=== PATIENT | female | born 1990 | race Caucasian/White ===

== ENCOUNTER 2017-05-31 19:27 | Emergency (ER) | payer OTHER ==
[2017-05-31] MEDS ORDERED: LIDOCAINE 1% INJ-PF (10 MG/ML) 30 ML SDV INJ ONE (20:00)
[2017-05-31] MEDS ORDERED: LORAZEPAM 1 MG TABLET PO ONE (20:01)
--- NOTE | 2017-05-31 20:10 | ER Document Report ---
ED Wound - General Chief Complaint: Laceration L ring finger Stated Complaint: LEFT HAND LACERATION Time Seen by Provider: 05/31/17 19:52 Notes: Patient is a 27-year-old female who comes emergency department for chief complaint of laceration to her left fourth finger, laceration is over the site of the finger near the fingernail but not including the fingernail. She was cutting cucumbers when this happened. She states she was on the job. She is up -to-date on her tetanus within 5 years. She is not a diabetic. TRAVEL OUTSIDE OF THE U.S. IN LAST 30 DAYS: No - Related Data Allergies/Adverse Reactions: codeine Allergy (Verified 07/28/16 11:11) pseudoephedrine [From Sudafed] Allergy (Verified 07/28/16 11:11) Past Medical History - General Information source: Patient - Social History Smoking Status: Never Smoker Frequency of alcohol use: None Drug Abuse: None Lives with: Family Family History: Reviewed & Not Pertinent - Medical History Medical History: Negative Renal/ Medical History: Denies: Hx Peritoneal Dialysis Surgical Hx: Negative - Immunizations Immunizations up to date: Yes Hx Diphtheria, Pertussis, Tetanus Vaccination: Yes Review of Systems - Review of Systems Constitutional: No symptoms reported EENT: No symptoms reported Cardiovascular: No symptoms reported Respiratory: No symptoms reported Gastrointestinal: No symptoms reported Genitourinary: No symptoms reported Female Genitourinary: No symptoms reported Musculoskeletal: See HPI Skin: See HPI Hematologic/Lymphatic: No symptoms reported Neurological/Psychological: No symptoms reported Physical Exam - Vital signs Vitals: Temp Pulse Resp BP Pulse Ox 98.7 F 79 18 122/71 97 05/31/17 19:32 05/31/17 19:32 05/31/17 19:32 05/31/17 19:32 05/31/17 19:32 Interpretation: Normal - General General appearance: Appears well, Alert, Anxious In distress: None - HEENT Head: Normocephalic, Atraumatic Eyes: Normal Conjunctiva: Normal Extraocular movements intact: Yes Eyelashes: Normal Pupils: PERRL Mouth/Lips: Normal Mucous membranes: Normal Pharynx: Normal Neck: Normal - Respiratory Respiratory status: No respiratory distress Chest status: Nontender Breath sounds: Normal. No: Decreased air movement, Wheezing Chest palpation: Normal - Cardiovascular Rhythm: Regular. No: Tachycardia Heart sounds: Normal auscultation, S1 appreciated, S2 appreciated Murmur: No - Abdominal Inspection: Normal Distension: No distension Bowel sounds: Normal Tenderness: Nontender Organomegaly: No organomegaly - Back Back: Normal, Nontender. No: Tender, CVA tenderness - Extremities General upper extremity: Other - There is a 1 cm irregular laceration over the medial side of the left fourth digit just adjacent to the fingernail. Normal capillary refill and sensation, normal range of motion of the entire finger; normal hand, wrist, and arm exam otherwise. General lower extremity: Normal inspection, Nontender, Normal color, Normal ROM , Normal temperature, Normal weight bearing. No: Rasheeda's sign - Neurological Neuro grossly intact: Yes Cognition: Normal Orientation: AAOx4 [place] Coma Scale Eye Opening: Spontaneous [place] Coma Scale Verbal: Oriented [place] Coma Scale Motor: Obeys Commands [place] Coma Scale Total: 15 Speech: Normal Motor strength normal: LUE, RUE, LLE, RLE Sensory: Normal - Psychological Associated symptoms: Normal affect, Normal mood, Anxious - Skin Skin Temperature: Warm Skin Moisture: Dry Skin Color: Normal Course - Re-evaluation Re-evalutation: Patient started hyperventilating when we even discussed the suture repair. After discussion agreed to give Ativan before procedure. Wound cleaned and repaired, discussed wound care, follow-up, return precautions. Patient states understanding and agreement. - Vital Signs Vital signs: Temp Pulse Resp BP Pulse Ox 98 F 70 18 135/50 H 100 05/31/17 21:15 05/31/17 21:15 05/31/17 21:15 05/31/17 21:15 05/31/17 21:15 Procedures - Laceration/Wound Repair Left ring finger Wound length (cm): 1 Wound's Depth, Shape: Irregular Volume Anesthetic (mLs): 3 - Digital block on only the medial side Wound explored: Clean, No foreign body removed Irrigated w/ Saline (mLs): 40 Wound Repaired With: Sutures Suture Size/Type: 5:0, Nylon Number of Sutures: 3 Post-procedure wound care: Sterile dressing applied Post-procedure NV exam normal: Yes Complications: No Discharge - Discharge Clinical Impression: Finger laceration Qualifiers: Encounter type: initial encounter Finger: ring finger Damage to nail status: without damage Foreign body presence: without foreign body Laterality: left Qualified Code(s): S61.215A - Laceration without foreign body of left ring finger without damage to nail, initial encounter Condition: Stable Disposition: HOME, SELF-CARE Additional Instructions: The sutures need to come out in about 7 days at a medical facility. Keep clean, clean gently with soap and water, avoid soaking, dab dry. You can apply dressing with thin film of antibiotic to the area. Expect some oozing blood first couple of days, apply dressing and use care. Afterwards use standard contact precautions. Return to emergency department immediately for any concerning symptoms including discolored discharge, redness, swelling, fever, or any other concerning symptoms. Forms: Return to Work
[2017-05-31 21:16] VITALS: BP 135/50
== END 2017-05-31 21:15 | disposition home or self-care (01) ==
LOC: ER 19:27
PROC: 0HQGXZZ Repair Left Hand Skin, External Approach (ICD-10-PCS; principal; 2017-05-31)
DX: S61.215A Laceration without foreign body of left ring finger without damage to nail, initial encounter (principal); W26.0XXA Contact with knife, initial encounter; Y93.G1 Activity, food preparation and clean up; Y99.0 Civilian activity done for income or pay; Z88.6 Allergy status to analgesic agent
CPT/HCPCS: 99282; 12001; J3490

== ENCOUNTER 2017-06-27 15:16 | Emergency (ER) | payer SELFPAY ==
[2017-06-27 16:02] VITALS: BP 139/80
--- NOTE | 2017-06-27 16:40 | ER Document Report ---
ED Psych Disorder / Suicide - General TRAVEL OUTSIDE OF THE U.S. IN LAST 30 DAYS: No - HPI Onset: Just prior to arrival Onset was: Sudden Suicide Risk Factors: Bipolar, Depressed, Lack of social support - in [place] Normal mood: No Associated symptoms: Anxious, Depressed, Tearful Similar symptoms previously: Yes - long history, no outpatient treatmet recently Recently seen / treated by doctor: No - General Chief Complaint: Psych Problem Stated Complaint: SUICIDAL IDEATION - HPI Notes: Patient is 27 year old female who presents to the ER via [facility] with [facility]. Patient reports she is a burden to everyone and she is "tired of being the only one who gives a sh about her." Patient states she is from [place], and moved here to be with her girlfriend. She states she and her girlfriend argued because she did not kiss her girlfriend before bed last night. Patient states their argument continued this morning, which he when she started to have thoughts of killing herself. Patient states she had not committed a method of suicide and states she considered a gun, although adamantly admits she does not have access to a weapon, or Tylenol which she states she has at home. Patient states she called her girlfriend at work this morning to tell her the police were there because she was suicidal, a call she states was met with a cold/ uncaring response. Note, patient refuses to provide her girlfriend's contact information to gather collateral. Patient states she does not want to by suicide. She states life was once "beautiful" and she wants to feel that way again. Patient states she was previously in therapy and receiving medication management; however, when she moved to [place] she discontinued and did not schedule herself anywhere. Patient states she has numerous stressors, to include financial stemming from a 10 day hospital stay in [place] for a gastro related issue. She states she owes over $30,000 in medical bills. Patient states she has no other supports in this area. She states she cannot afford a motel room. Patient states her parents are driving from [place] [employer] to get her in the morning to bring her back to [place]. Patient states she does not want to go home, despite being concerned about her dog and other belongings. Patient denies wanting to by suicide. Patient denies prior attempts. She does report a prior history of inpatient psychiatric treatment (a 1x 72 hour hold in [place]). [facility] ([facility]) states she responded to the call this morning due to the patient expressing SI. [facility] states she has worked out a safety plan, to include the patient's parents driving here to bring her back to [place] tomorrow. She states she has no other safe place to stay, and [facility] did not feel it was safe to leave the patient in her home environment where there was Tylenol and her stressors (girlfriend). [facility] reports patient did not have the financial means to pay for a motel room. Patient is A&O. Mood is labile, irritable with tearful affect. Patient denies wanting to by suicide. She does acknowledge the made statements regarding suicide earlier in the day. Patient denies homicidal ideations, intent, plan, or means. Patient denies A/V H; delusions not noted. Thought processes were perseverative on her girlfriend, and their argument. Conversational speech was labile for rate, tone, and prosody. Intellectual abilties were estimated within average range. Attention and focus were poor (looked down at phone/texted throughout conversation). Insight, judgment, and impulse control were poor. Unspecified Bipolar Disorder, per history Patient is psychiatrically cleared for discharge. Patient is presenting via mobile crisis due not "[facility] Patient acknowledges she made SI comments earlier in the day, and further acknowledges that she considered methods of suicide; however, states she does not want to by suicide. Patient reports she wants to feel better and get back to a "beautiful life." Patient does not meet criteria for IVC under the [id number] as she denies SI/HI. Patient is attempting to meet her basic needs by misusing the ER and Mental Health systems. She has a home, where she states the lease is in her home and she can return to; however, declines to at this time. Patient provided resources to assist her in following up, to include the homeless fpc. I consulted with Dr. Diaz in regards to the care and management of this patient. (MITZI HENSON) - Related Data Allergies/Adverse Reactions: codeine Allergy (Verified 07/28/16 11:11) pseudoephedrine [From Sudafed] Allergy (Verified 07/28/16 11:11) Past Medical History - General Information source: Patient, [facility] Office - [facility] - Social History Smoking Status: Unknown if Ever Smoked Family History: Reviewed & Not Pertinent Patient has suicidal ideation: No - pt verbally denies wanting to by suicide Patient has homicidal ideation: No Renal/ Medical History: Denies: Hx Peritoneal Dialysis - Immunizations Immunizations up to date: Yes Hx Diphtheria, Pertussis, Tetanus Vaccination: Yes - Vital signs Vitals: Temp Pulse Resp BP Pulse Ox 98.2 F 67 18 139/80 H 96 06/27/17 15:41 06/27/17 15:41 06/27/17 15:41 06/27/17 15:41 06/27/17 15:41 - Vital Signs Vital signs: Temp Pulse Resp BP Pulse Ox 98.2 F 67 18 139/80 H 96 06/27/17 15:41 06/27/17 15:41 06/27/17 15:41 06/27/17 15:41 06/27/17 15:41 Discharge - Discharge Clinical Impression: Bipolar disorder Qualifiers: Active/Remission status: currently active Current bipolar episode type: depressed Current episode severity: unspecified Qualified Code(s): F31.30 - Bipolar disorder, current episode depressed, mild or moderate severity, unspecified Condition: Stable Disposition: HOME, SELF-CARE Additional Instructions: Bipolar Disorder Bipolar disorder is also called manic-depressive disorder. Depression alternates with brain hyperactivity called eitan. Each phase lasts from several days to a few weeks. We don't know exactly what causes bipolar disorder , but it's treatable. During the "manic phase," you may feel elated and energetic. You may have racing thoughts, rapid speech, increased activity, and grandiose ideas. During this time, you may not realize how poor your judgement is. Inappropriate spending, drug abuse, excessive alcohol use, marriage problems, and irresponsible sexual behavior are common during the manic phase. During the "depressive phase," you might feel depressed, guilty, worthless , fatigued, and unable to concentrate. You might have thoughts of suicide. Good treatments are available for bipolar disorder. [place] is a classic drug for bipolar disorder, and is still often useful. If the manic phase is very mild, an antidepressant alone can be prescribed. If the manic phase is very severe, an antipsychotic medicine (such as Haldol) may be needed. The treatment must be matched to your symptoms, so it's important to work closely with your psychiatric care provider. Contact your physician, the hospital emergency center, crisis line, or your counsellor if you are losing control or having self-destructive thoughts. Please follow your safety plan as designated by [facility] with [facility]. You have indicated you have a home to return to, but are choosing not to. You have been provided resources to assist you in pursuing a bed at the homeless fpc if you so desire. You have denied multiple times wanting to by suicide. Referrals: [facility] Team [Provider Group] - Follow up as needed
--- NOTE | 2017-06-27 17:14 | ER Document Report ---
ED Psych Disorder / Suicide - General Mode of Arrival: Ambulatory Information source: Patient TRAVEL OUTSIDE OF THE U.S. IN LAST 30 DAYS: No - HPI Patient complains to provider of: Other Onset: Just prior to arrival Quality of pain: No pain Severity: None - General Chief Complaint: psych eval Stated Complaint: SUICIDAL IDEATION Time Seen by Provider: 06/27/17 17:02 Notes: This 27-year-old female patient wants to stay in the emergency room because she has nowhere to stay tonight. She has had a deteriorating relationship with her girlfriend for some time, and got acutely worse this morning by history. She states the home where she lives has a lease and her name, and everyone there is now upset because if she leaves then they will be forced out of the residence. She states she does not have money for hotel room. She was seen by Loretta earlier, she made several derogatory comments about Loretta because she essentially told her that she cannot stay in the emergency room and that she could go to a hotel or to the homeless snf. The patient states that her parents are on the way here from [facility], that it is a [address] She cannot or will not tell me if they will be here [facility] or sometime tomorrow. She cannot tell me if they were leaving [facility] or leaving tomorrow to come to [place]. From the time they first were contacted they could have been here probably by midnight. She claims she was last on medication for her anxiety and depression problems 5 years ago. She does smoke cigarettes, does not drink alcohol, does smoke marijuana. 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 She does not want to kill herself. She called [facility] mobile crisis earlier and indicated that she had suicidal thoughts. She does not have a plan, and again she does not want to harm herself. She does not meet criteria for involuntary commitment. (MADI ZAZUETA) Patient is a 27 year old female that presents to the emergency department today with complaints of "not having a place to stay". Patient states she has been having problems in her relationship with her girlfriend for approximately 1 year. Patient states today they got in an argument that "escalated". Patient states she called her parents because she states she is ready to move back home to [facility]. Patient states the parents did not say when they would be leaving but they stated that they would be here tomorrow. Patient states her house is under her name so when she leaves town her roommates will all have to leave which makes her unable to go back to the house tonight. Patient states she knows they will be upset with her because they will all have to find a new place to live. Patient states that she has been on anxiety and depression in the past but that she has been off of her medication for approximately 5 days. Patient states he does not want to kill herself. (PATRICK TALAVERA) - Related Data Allergies/Adverse Reactions: codeine Allergy (Verified 07/28/16 11:11) pseudoephedrine [From Sudafed] Allergy (Verified 07/28/16 11:11) Past Medical History - General Information source: Patient, Office - [facility] - Social History Smoking Status: Unknown if Ever Smoked Cigarette use (# per day): No Frequency of alcohol use: None Drug Abuse: None Lives with: Family Family History: Reviewed & Not Pertinent Patient has suicidal ideation: No - pt verbally denies wanting to by suicide Patient has homicidal ideation: No Psychiatric Medical History: Reports: Hx Bipolar Disorder, Hx Depression Past Surgical History: Reports: Hx Tonsillectomy - Immunizations Immunizations up to date: Yes Hx Diphtheria, Pertussis, Tetanus Vaccination: Yes Review of Systems - Review of Systems Constitutional: No symptoms reported EENT: No symptoms reported Cardiovascular: No symptoms reported Respiratory: No symptoms reported Gastrointestinal: No symptoms reported Genitourinary: No symptoms reported Female Genitourinary: No symptoms reported Musculoskeletal: No symptoms reported Skin: No symptoms reported Hematologic/Lymphatic: No symptoms reported Neurological/Psychological: See HPI, Depression -: Yes All other systems reviewed and negative Physical Exam - Vital signs Vitals: Temp Pulse Resp BP Pulse Ox 98.2 F 67 18 139/80 H 96 06/27/17 15:41 06/27/17 15:41 06/27/17 15:41 06/27/17 15:41 06/27/17 15:41 - Notes Notes: Physical Exam: General: Alert, appears well. HEENT: Normocephalic. Atraumatic. PERRL. Extraocular movements intact. Oropharynx clear. Neck: Supple. Non-tender. Respiratory: No respiratory distress. Clear and equal breath sounds bilaterally. Cardiovascular: Regular rate and rhythm. Abdominal: Obese. No distension. Normal Bowel Sounds. Back: Non-tender. No deformity or step off. Extremities: Moves all four extremities. Upper extremities: Normal inspection. Normal ROM. Lower extremities: Normal inspection. No edema. Normal ROM. Neurological: Normal cognition. AAOx4. Normal speech. Psychological: Tearful Skin: Warm. Dry. Normal color. (PATRICK TALAVERA) - Vital Signs Vital signs: Temp Pulse Resp BP Pulse Ox 98.2 F 67 18 139/80 H 96 06/27/17 15:41 06/27/17 15:41 06/27/17 15:41 06/27/17 15:41 06/27/17 15:41 - Laboratory Laboratory results interpreted by me: 06/27/17 16:40 Ur Leukocyte Esterase SMALL H Discharge - Discharge Clinical Impression: Bipolar disorder Qualifiers: Active/Remission status: currently active Current bipolar episode type: depressed Current episode severity: unspecified Qualified Code(s): F31.30 - Bipolar disorder, current episode depressed, mild or moderate severity, unspecified Condition: Stable Disposition: HOME, SELF-CARE Additional Instructions: Bipolar Disorder: Bipolar disorder is also called manic-depressive disorder. Depression alternates with brain hyperactivity called eitan. Each phase lasts from several days to a few weeks. We don't know exactly what causes bipolar disorder , but it's treatable. During the "manic phase," you may feel elated and energetic. You may have racing thoughts, rapid speech, increased activity, and grandiose ideas. During this time, you may not realize how poor your judgement is. Inappropriate spending, drug abuse, excessive alcohol use, marriage problems, and irresponsible sexual behavior are common during the manic phase. During the "depressive phase," you might feel depressed, guilty, worthless , fatigued, and unable to concentrate. You might have thoughts of suicide. Good treatments are available for bipolar disorder. [place] is a classic drug for bipolar disorder, and is still often useful. If the manic phase is very mild, an antidepressant alone can be prescribed. If the manic phase is very severe, an antipsychotic medicine (such as Haldol) may be needed. The treatment must be matched to your symptoms, so it's important to work closely with your psychiatric care provider. Contact your physician, the hospital emergency center, crisis line, or your counsellor if you are losing control or having self-destructive thoughts. //////////////////////////////////////////////////////////////////////////////// //////////////////////////////////////////////////////////////////////////////// /////////////////// You do not meet criteria for involuntary commitment under the [place] general statutes. Please follow your safety plan as designated by [facility] with [facility]. You have indicated you have a home to return to, but are choosing not to. You have been provided resources to assist you in pursuing a bed at the homeless snf if you so desire. You have denied multiple times wanting to by suicide. Referrals: [facility] [Provider Group] - Follow up as needed Scribe Attestation: 06/27/17 17:51 I personally performed the services described in the documentation, reviewed and edited the documentation which was dictated to the scribe in my presence, and it accurately records my words and actions. (MADI ZAZUETA) Scribe Documentation - Scribe Written by Lacy:: Lacy Mckeon, 06/27/2017, 1853 acting as scribe for :: Leif
[2017-06-27 17:31] LABS: APPEARANCE,URINE CLEAR; BILIRUBIN,URINE NEGATIVE (NEGATIVE); GLUCOSE, URINE NEGATIVE (NEGATIVE); KETONES,URINE NEGATIVE (NEGATIVE); LEUKOCYTE ESTERASE,URINE SMALL (NEGATIVE); NITRITE,URINE NEGATIVE (NEGATIVE); PROTEIN,URINE NEGATIVE (NEGATIVE); URINE SPECIFIC GRAVITY 1.009; UROBILINOGEN,URINE NEGATIVE mg/dL (<2.0)
[2017-06-27 17:39] LABS: URINE BARBITURATES SCREEN NEGATIVE; URINE METHADONE SCREEN NEGATIVE; URINE OPIATES LOW NEGATIVE; URINE PHENCYCLIDINE SCREEN NEGATIVE
== END 2017-06-27 18:05 | disposition home or self-care (01) ==
LOC: ER 15:16
DX: F31.9 Bipolar disorder, unspecified (principal); Z59.8 Other problems related to housing and economic circumstances; Z88.5 Allergy status to narcotic agent; Z88.8 Allergy status to other drugs, medicaments and biological substances
CPT/HCPCS: 80307; 81001; 99284